=== PATIENT | female | born 1970 ===

== ENCOUNTER 2025-02-06 | Outpatient (REF) | payer MEDICARE, MEDICAID, SELFPAY ==
[2025-02-09 09:19] LABS: MANUAL DIFF FLAG NO
[2025-02-09 09:38] LABS: Basophils Percent Auto 0.8 % (0-2); Eosinophils Absolute Auto 0.6 X10*3/uL (0.0-0.4); Hematocrit 39.4 % (37.0-47.0); Imm Gran Abs Auto 0.01 X10*3/uL (0.00-0.03); Imm Gran Pct Auto 0.2 % (0.0-0.4); Lymphocytes Absolute Auto 1.9 X10*3/uL (1.2-4.9); Lymphocytes Percent Auto 38.7 % (20-40); Mean Corpuscular Hemoglobin 31.5 pg (27.0-33.0); Mean Corpuscular Volume 95.4 fL (80.0-98.0); Mean Platelet Volume 11.4 fL (9.4-12.3); Monocytes Absolute Auto 0.4 X10*3/uL (0.1-1.2); Monocytes Percent Auto 8.8 % (2-11); Neutrophils Absolute Auto 1.9 x10*3/uL (2.0-8.3); Neutrophils Percent Auto 38.5 % (45-73); Platelet Count 259 X10*3/uL (160-400); Red Blood Count 4.13 X10*6/uL (4.20-5.50); White Blood Count 4.9 X10*3/uL (4.8-10.8)
--- OUTSIDE RECORDS SUMMARY | 2025-02-09 10:03 | XMS_ITS | Encounter Summary ---
Author Organization [place] [address] Care Team Providers Care Joy Loader Name Role Phone Katina An MD Primary Care Prov ider Encounter Details Date Type Department Care Team (Late st Contact Info) Description 08/08/2024 8:00 AM EDT Hospital Encounter TH HISTORIC ENCOUNTERS EASTERN CONVERSION ONLY Social History Tobacco Use Types Packs/Day Years Used Date Smoking Tobacco: Former Cigarettes 1 21 0 10/08/1984 - 10/08/2005 Smokeless Tobacco: Never Alcohol Use Standard Drinks/Week Comments Yes 0 (1 standard drink = 0.6 oz pur e alcohol) Housing Instability Answer Date Recorde d Are you worried that in the next 2 months you may not have stable housing? No 01/22/2025 Food Access & Nutrition Answer Date Rec orded Do you have access to a vari ety of food including fruits and vegetables? Yes 01/22/2025 Access to Healthcare Answer Date Record ed Within the last 3 months, ho w many times did you visit the emergency department for your medical care? 0 01/22/2025 Health Literacy Answer Date Recorded How often do you need to hav e someone help you when you read instructions, pamphlets, or other written material from your doctor or pharmacy? Never 01/22/2025 Caregiver: How often do you need to have someone help you when you read instructions, pamphlets, or other written material from your doctor or pharmacy? Not on file 01/22/2025 Financial Risk Answer Date Recorded How hard is it for you to pa y for the very basics like food, housing, medical care, and air conditioning / heating? Not very hard 01/22/2025 Transportation Answer Date Recorded Has the lack of transportati on kept you from meetings, work, or from getting things needed for daily living? No Has the lack of transportati on kept you from medical appointments or from getting medications? No 01/22/2025 Social Isolation Answer Date Recorded How often do you feel lonely or isolated from th ose around you? Never 01/22/2025 Food Risk Answer Date Recorded Within the past 12 months we worried whether our food would run out before we got money to buy more. Never true 01/22/2025 Within the past 12 months th e food we bought just didn't last and we didn't have money to get more. Never true 01/22/2025 Dependent Care Answer Date Recorded Do you need help finding or paying for care for your loved ones. For example, early childhood education instructor or elderly care for an older adult? No 01/22/2025 Education Answer Date Recorded Do you think completing more education or training, like finishing a GED, going to college, or learning a trade, would be helpful for you? No 01/22/2025 Employment and Income Answer Date Recor ded During the last four weeks, have you been actively looking for work? No 01/22/2025 Living Situation Answer Date Recorded What is your living situation? 0 01/22/2025 Comments No Sex and Gender Information Value Date Recorded Sex Assigned at Not on file Legal Sex Female 10:07 AM EST Gender Identity Not on file Sexual Orientation Not on file documented as of this encounter Last Filed Vital Signs Vital Sign Reading Time Taken Comments Blood Pressure - - Pulse - - Temperature - - Respiratory Rate - - Oxygen Saturation - - Inhaled Oxygen Concentration - - Weight 68.6 kg (151 lb 4.8 oz) 05/06/2024 9:57 A M EDT Height 160 cm (5' 3 ) 05/06/2024 9:57 AM EDT Body Mass Index 26.8 05/06/2024 9:57 AM EDT documented in this encounter Plan of Treatment Upcoming Encounters Date Type Department Care Team (Late st Contact Info) Description 04/06/2025 12:30 PM EDT Appointment [facility] Endoscopy [address] [place] [address] Nael Dyson MD [address] [place] [address] 04/24/2025 9:30 AM EDT Office Visit [facility] [place] [address] [place] [address] Leida Lea PA [address] [place] [address] 07/29/2025 9:45 AM EDT Office Visit [facility] - [place] [address] [place] [address] Grecia Lombardi PA [address] [place] [address] 08/17/2025 2:45 PM EST Appointment Bone Density - [address] [phone] 08/17/2025 3:30 PM EST Appointment Radiology Department - [address] [phone] documented as of this encounter Visit Diagnoses Not on filedocumented in this encounter Care Teams Joy Loader Relationship Specialty Start Date End Date Katina An MD PCP - General Internal Medicine 05/12/21 11/17/24 documented as of this encounter
--- OUTSIDE RECORDS SUMMARY | 2025-02-09 10:03 | XMS_ITS | Encounter Summary ---
Author Organization [place] [address] Care Team Providers Care Glue Size Machine Operator Name Role Phone Katina An MD Primary Care Prov ider Encounter Details Date Type Department Care Team (Late st Contact Info) Description 08/08/2024 7:51 AM EDT Hospital Encounter TH HISTORIC ENCOUNTERS EASTERN CONVERSION ONLY Brenton Kumar MD [address] [facility] [address] [place] [address] Social History Tobacco Use Types Packs/Day Years [...] loved ones. For example, early childhood education coordinator or elderly care for an older adult? [...] 9:57 AM EDT documented in this encounter Progress Notes * Hebatalla Elhusseiny, MD - 08/08/2024 8:00 AM EDT [facility] MULTIPLE SCLEROSIS HPI: Patient is a 54 y.o. year old female who presents for follow-up visit regarding ongoing management of multiple sclerosis. Disease Summary Date of onset/Initial symptom presentation: 1991 Date of diagnosis of MS: 1991 Disease course at onset: Relapsing Current disease course: relapsing Last MS exacerbation: Previous disease therapies(reason for switch): Betaseron, Tecfidera Current disease therapy: Ocrevus Most recent MRI Brain: 06/2023 stable 07/2022 (stable) Most recent MRI Cervical spine: 06/2023 stable 07/2022- stable (stable patchy foci at C2-3, C5-6, C6-7) Most recent MRI Thoracic spine: 06/2023 no cord lesions CSF: Not performed JCV serology result and date: Not performed MS mimickers: Not performed/available Vit B12 880 EDSS: 3.0 Interval history Patient is here for follow up No new neurological symptom concerning for demyelination since last visit Patient still on Ocrevus tolerating it well Since last visit she has been over all stable she is still feeling her leg numbness and wobbliness we discussed again the utility of PT OT she will consider scheduling She denies any falls she is getting her infusion done today She is still being active socializing with her friends She denies any change in her bowel or bladder function We had a prolonged discussion about how to minimize UTIs she had an average of 2 UTIs in 6 months we discussed double voiding technique patient have frequency difficulty emptying we also discussed cranberry juice as a prophylactic help She is still benefiting from gabapentin for neuropathic pain 400 mg / 800 mg tolerating it well no side of Last visit history reviewed: Patient returns for EDSS exam. She continues Ocrevus for disease modifying therapy and next infusion is scheduled for 08/08/2024. Numbness in lower extremities persists. Balance has been off. She denies recent falls. She is scheduled for PT in May. No new neurological symptom concerning for demyelination since last visit Patient still on Ocrevus tolerating it well , next scheduled 02/06/2020 Since last visit she has been over all stable ,She didn't want go on physical therapy , she denies any falls since last visit Prolonged discussion with the patient with the utility of TOT to try to get her back stronger, Her walk time has been getting progressively worse she agreed to place a referral She is trying move to subside housing Review of Systems Constitutional: Positive for fatigue. Musculoskeletal: Positive for gait problem. All other systems reviewed and are negative. Patient Active Problem List Diagnosis SNOMED CT(R) ??? Multiple sclerosis (HCC) MULTIPLE SCLEROSIS Current Outpatient Medications: ??? alendronate (FOSAMAX) tablet 70 mg, Take 1 tablet (70 mg total) by mouth once a week., Disp: , Rfl: ??? ALPRAZolam (XANAX) 0.5 MG tablet, Take 1 tablet (0.5 mg total) by mouth 3 (three) times a day as needed for sleep., Disp: , Rfl: ??? atorvastatin (LIPITOR) tablet 20 mg, Take 1 tablet (20 mg total) by mouth daily., Disp: , Rfl: ??? CALCIUM PO, Take by mouth., Disp: , Rfl: ??? citalopram (CeleXA) 40 MG tablet, TAKE 1 TABLET BY MOUTH EVERY DAY IN THE MORNING, Disp: , Rfl: ??? clonazePAM (KlonoPIN) 0.5 MG tablet, TAKE 1 TABLET BY MOUTH TWICE A DAY NEEDED FOR ANXIETY, Disp: , Rfl: ??? gabapentin (NEURONTIN) 400 MG capsule, Take 1 capsule (400 mg total) by mouth 3 (three) times aday., Disp: 90 capsule, Rfl: 5 ??? Multiple Vitamin (MULTIVITAMIN PO), Take by mouth., Disp: , Rfl: ??? Ocrelizumab (OCREVUS IV), Inject into the vein., Disp: , Rfl: ??? traZODone (DESYREL) 100 MG tablet, Take 1 tablet (100 mg total) by mouth every night at bedtime., Disp: , Rfl: ??? vitamin C (ASCORBIC ACID) 250 MG tablet, Take 1 tablet (250 mg total) by mouth daily., Disp: , Rfl: No current facility-administered medications for this visit. Physical Exam: Vitals and infusion note General: A&Ox3 Cranial Nerves: PERRL, EOMI without nystagmus, facial strength symmetric, no facial droop, tongue protrusion midline, speech clear, shoulder shrug symmetric Motor: strength 5/5 bilateral UE, bilateral hip flexion 4+/5 left lower extremity is weaker Sensory: decreased sensation to light touch in left lower left-sided upper and lower extremity reflexes: 2+/4+ bilateral biceps, 2+/4+ bilateral patellar. Cerebellar: Left-sided [id number] dysmetria, decreased left hand and foot tapping, positive Romberg, unable to tandem Gait: using a cane 25 foot timed walk: 12.9, 13.0 with cane EDSS score: 6.0 A/P: Multiple Sclerosis: Barb Cardenas is a 54 year old female with MS treated with Ocrevus for disease- modifying therapy. She remains stable overall from a clinical perspective and this will be continued. We discussed again the utility of PT OT patient will go upstairs to schedule after her infusion A. Disease modifying therapy and diagnostic plan: -Continue Ocrevus per [facility] protocol. -Screening labs as per protocol -Brain and cervical spine MRIs without contrast ordered on an annual basis ?? B. ??Symptomatic therapy plan: Vertigo: consider vestibular therapy in future if needed Gait impairment: will refer OT PT evaluation scheduled Myelopathic pain: gabapentin 400 mg /800 mg Urinary urgency: Continue to monitor. ?? Patient was encouraged to call the office with any questions or concerns. Follow up in 4 months The patient and I discussed the clinical picture during today's appointment. Additional time was spent prior to the actual appointment reviewing records, lab values and imaging results and preparing documentation for today's visit. There was also time spent following the in person visit documenting, arranging for further diagnostic testing and follow-up appointments. The entire time spent in thisprocess was greater than 40 minutes. The majority of the actual [id number] visit was spent counseling the patient with respect to the current neurological picture. Brenton Kumar MD documented in this encounter Plan of Treatment Upcoming Encounters Date Type Department Care Team (Late st Contact Info) Description 04/06/2025 12:30 PM EDT Appointment [facility] Endoscopy [address] [place] [phone] Nael Dyson MD [address] [address] 04/24/2025 9:30 AM EDT Office Visit [facility] [address] [place] [address] Leida Lea PA [address] [place] [address] 07/29/2025 9:45 AM EDT Office Visit Adult Medicine - [place] [address] [place] [address] Grecia Lombardi PA [address] [place] [address] 08/17/2025 2:45 PM EST Appointment Bone Density - [address] [phone] 08/17/2025 3:30 PM EST Appointment Radiology Department - [address] [phone] documented as of this encounter Visit Diagnoses Not on filedocumented in this encounter Care Teams Glue Size Machine Operator Relationship Specialty Start Date End Date Katina An MD PCP - General Internal Medicine 05/12/21 11/17/24 documented as of this encounter
--- OUTSIDE RECORDS SUMMARY | 2025-02-09 10:03 | XMS_ITS | Clinical Summary ---
Author Organization [facility] Address [address] [place] [address] Care Team Providers Care Printer Slotter Feeder Name Role Phone Katina An MD Primary Care Prov ider Allergies Active Allergy Reactions Criticality Noted Date Comments Dust 12/10/2020 Pollen Extract 12/10/2020 Medications Medication Sig Dispensed Refills Start Date End Date Status atorvastatin (LIPITOR) tablet 20 mg Take 1 tablet (20 mg total) by mouth daily. 0 11/18/2020 Active citalopram (CeleXA) 40 MG tablet TAKE 1 TABLET BY MOUTH EVERY DAY IN THE MORNING 0 10/18/2020 Active clonazePAM (KlonoPIN) 0.5 MG tablet TAKE 1 TABLET BY MOUTH TWICE A DAY NEEDED FOR ANXIETY 0 11/27/2020 Active traZODone (DESYREL) 100 MG tablet Take 1 tablet (100 mg total) by mouth every night at bedtime. 0 Active ALPRAZolam (XANAX) 0.5 MG tablet Take 1 tablet (0.5 mg total) by mouth 3 (three) times a day as needed for sleep. 0 Active CALCIUM PO Take by mouth. 0 Active vitamin C (ASCORBIC ACID) 250 MG tablet Take 1 tablet (250 mg total) by mouth daily. 0 Active Multiple Vitamin (MULTIVITAMIN PO) Take by mouth. 0 Act benny Ocrelizumab (OCREVUS IV) Inject into the vein. 0 Active alendronate (FOSAMAX) tablet 70 mg Take 1 tablet (70 mg total) by mouth once a week. 0 09/05/2021 Active gabapentin (NEURONTIN) 400 MG capsule Take 1 capsule (400 mg total) by mouth 3 (three) times a day. 90 capsule 5 01/28/2024 Active Active Problems Problem Noted Date Diagnosed Date Multiple sclerosis 01/10/2021 Family History Medical History Relation Name Comments Colon cancer Father Heart defect Maternal Grandfather Cervical cancer Maternal Grandmother Multiple sclerosis Neg Hx Relation Name Status Comments Father Maternal Grandfather Maternal Grandmother Social History Tobacco Use Types Packs/Day Years Used Date Smoking Tobacco: Former Cigarettes Smokeless Tobacco: Never Tobacco Cessation:Counseling Given: Not Answered Sex and Gender Information Value Date Recorded Sex Assigned at Female 12/10/2020 9:45 AM EST Gender Identity Not on file Sexual Orientation Not on file Job Start Date Occupation Industry Not on file Not on file Not on file Last Filed Vital Signs Vital Sign Reading Time Taken Comments Blood Pressure 130/74 08/08/2024 11:20 AM EDT Pulse 58 08/08/2024 11:20 AM EDT Temperature 36.4 ??C (97.5 ??F) 08/08/2024 11:20 AM E DT Respiratory Rate 18 08/08/2024 11:20 AM EDT Oxygen Saturation 96% 08/08/2024 11:20 AM EDT Inhaled Oxygen Concentration - - Weight 68.6 kg (151 lb 4.8 oz) 05/06/2024 9:57 A M EDT Height 160 cm (5' 3 ) 05/06/2024 9:57 AM EDT Body Mass Index 26.8 05/06/2024 9:57 AM EDT Plan of Treatment Health Maintenance Due Date Last Done Comments Hepatitis B Vaccines (1 of 3 - 3-dose series) 1969 Hepatitis C Screening 1969 COVID-19 Vaccine (#1) 1969 Depression Screening 1981 BMI Counseling 1987 Preventative Health Evaluation 1987 Cervical Cancer Screening (Pap Smear) 1990 Colon Cancer Screening (Colonoscopy) 2014 Breast Cancer Screening (Mammogram) 2019 Shingrix-Zoster Vaccine (1 o f 2) 2019 Influenza Vaccine (#1) 2024 2, 07/02/2017 DTap / Tdap / Td (2 - Td or Tdap) 02/19/2027 02/19/2017 Pneumococcal Vaccine Aged Out No long er eligible based on patient's age to complete this topic RSV Ped < 20 months Aged Out No longe r eligible based on patient's age to complete this topic Care Teams Printer Slotter Feeder Relationship Specialty Start Date End Date Katina An MD PCP - General Internal Medicine 05/25/21
--- OUTSIDE RECORDS SUMMARY | 2025-02-09 10:03 | XMS_ITS | Encounter Summary ---
Author Organization [employer] [facility] [place] [address] Care Team Providers Care Application Technician Name Role Phone Katina An MD Primary Care Prov ider Reason for Visit * Reason Onset Date Comments STATUS OF FEBRUARY OCREVUS INFUSION 02/05/2025 Encounter Details Date Type Department Care Team (Late st Contact Info) Description 02/05/2025 Telephone [facility] [address] [place] [phone] Leida Lea PA [address] [place] [address] STATUS OF FEBRUARY OCREVUS INFUSION Social History Tobacco Use Types Packs/Day Years [...] care for your loved ones. For example, special needs child caregiver or elderly care for an older adult? [...] on file documented as of this encounter Progress Notes * Joslyn Almazan - 02/05/2025 2:48 PM EDT Recvd return call from [facility]- pt is scheduled for Ocrevus home infusion 02/06/25. * Joslyn Norah - 02/05/2025 9:25 AM EDT I left a message for Payam Quiñonez @ [facility], inquiring on the status of pt's May infusion. Asked for call back adamaris. documented in this encounter Plan of Treatment Upcoming Encounters Date Type Department Care Team (Late st Contact Info) Description 04/06/2025 12:30 PM EDT Appointment [facility] Endoscopy [address] [place] [phone] Nael Dyson MD [address] [facility] [address] [place] [address] 04/24/2025 9:30 AM EDT Office Visit [facility] [place] [address] [place] [phone] Leida Lea PA [address] [place] [address] 07/29/2025 9:45 AM EDT Office Visit Adult Medicine - [place] [address] [place] [address] Grecia Lombardi PA [address] [place] [address] 08/17/2025 2:45 PM EST Appointment Bone Density - [address] [phone] 08/17/2025 3:30 PM EST Appointment Radiology Department - [address] [phone] documented as of this encounter Visit Diagnoses Not on filedocumented in this encounter Additional Health Concerns Assessment Noted Time PHQ-9 Depression Total Score: 5 01/20/20 11:06 AM EDT documented as of this encounter Care Teams Application Technician Relationship Specialty Start Date End Date Katina An MD [address] [place] [id number] PCP - General Internal Medicine 11/18/24 documented as of this encounter
== END 2025-02-06 00:01 | disposition home or self-care (01) ==
LOC: HO.LNP
PROVIDERS: Visit Provider Physician Assistant
DX: G35 Multiple sclerosis (principal)
CPT/HCPCS: 85025